=== PATIENT | male | born 1980 | race Caucasian/White ===

== ENCOUNTER 2023-05-07 13:43 | Outpatient (CLI) | payer OTHER ==
--- NOTE | 2023-05-07 14:37 | Sleep Patient Instructions ---
Sleep Center Visit Summary - Patient Visit Information Reason for Visit: Initial consult for evaluation of sleep disordered breathing and other sleep issues. - Patient Instructions Instructions Attached: Sleep Study, Sleep Study Home Monitor Additional Instructions: You will be completing a sleep study, either an in-lab polysomnography (PSG) or home sleep study (HST). You will follow-up in the sleep care office after the sleep study is completed to hear the results and talk about therapy, if needed. You will be called by our office staff to schedule this appointment, but you may contact us with any questions. - Clinic Information Contact: [facility] [address] [place] [id number] [email or web address] T: [phone]
--- NOTE | 2023-05-07 14:40 | SLEEP CARE CONSULTATION ---
Information from patient questionnaire entered by Navya Marks. I have reviewed and concur with the information entered by Navya Marks. This document represents the service I personally performed and the decisions made by me, Karlene Mccann ARNP. History of Present Illness Service Date and Time: 05/07/2023 1343 Reason for Visit: New patient Chief Complaint: reports: Snoring Date of Onset: years Usual bedtime: 2100 Time it takes to fall asleep: SECONDS Snores at night: Yes Observed to quit breathing while asleep: No Sleeps alone due to snoring: Yes Number of times waking at night: 3-4 Reasons for waking at night: reports: Snoring (frequently), Bathroom, Other (UNKNOWN). denies: Choking, Gasping for air Toss, Turn, or Twitch while sleeping: No Recalls having dreams: Yes Usually gets out of bed at: 0500; weekends 0700 Feels refreshed in the morning: Yes (50 percent of time) Morning headache: No Sleepy or fatigued during the day: Yes Ever fallen asleep while driving: No Takes day naps: No Dreams during day naps: Yes Prior sleep studies: No Additional HPI information: I had the pleasure of seeing DEE DEE VALDEZ today regarding the possibility of him having a sleep disorder. His current complaint is snoring. He say his is complaining that in the last couple year his snoring has become louder than ever. She has not noted pauses in breathing. He says he is getting up frequently at night, sometimes to urinate but mostly for unknown reasons. He says he is rested about half the time when he gets up in the morning. He does have some daytime fatigue for which he drinks a lot of caffeine drinks. 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 Patient is and lives in . Have you smoked in the past 12 months: No Cigarettes per day (20/pack): 2 Years of smokin Quit date: 2021 Smoking Pack Years: 2.0 Alcohol use: No Caffeine use: Yes Caffeine amount and frequency: ALOT DAILY Family History Family history of sleep disordered breathing: No Allergies and Home Medications Known drug allergies: No Drug allergies reviewed: Yes Home medication list reviewed: Yes (as listed) Allergy and home medication list: Home Medications Medication Instructions Recorded Confirmed Last Taken Type Cholecalciferol (Vitamin D3) See Rx Instructions .ROUTE .COMPLEX 05/07/23 05/07/23 Unknown History [Vitamin D3] Mecobalamin [B12 Active] See Rx Instructions .ROUTE .COMPLEX 05/07/23 05/07/23 Unknown History Multivitamin See Rx Instructions .ROUTE .COMPLEX 05/07/23 05/07/23 Unknown History Review of Systems Weight gain over past 5 years: fluctuates 20-30 pounds Cardiovascular: denies: high blood pressure Respiratory: denies: shortness of breath Gastrointestinal: denies: heartburn Neurological: denies: headaches Psychiatric: denies: anxiety, depression Ear/Nose/Throat: reports: wisdom teeth removed. denies: tonsillectomy Immunologic: denies: allergies to food or environment Physical Exam Vital signs obtained and entered by: NAVYA Alberto MA Blood Pressure: 132/84 Cuff size: wrist (left) Heart Rate: 92 O2 Saturation: 98 Height: 5 ft 11 in Weight: 239 lb Body Mass Index: 33.3 BMI Classification: Obese Neck circumference: 16.25 Mouth and throat: narrow oropharynx Soft palate: long Hard palate: normal Uvula: long Uvula visualization: 25% Mallampati Class III Tongue: enlarged in size with teeth allen on lateral edges Tonsils: small Neck: normal w/o lymphadenopathy or thyromegaly Heart: regular rate and rhythm Lungs: clear bilaterally Impression and Plan 1. Suspected Obstructive Sleep Apnea-Hypopnea Syndrome, as suggested by a history of loud and irregular snoring, frequent awakening during the night and unrefreshed sleep. Narrow oropharynx and obesity are common predisposing factors for obstructive sleep apnea-hypopnea syndrome. I recommend proceeding to polysomnography to confirm the diagnosis and to assess severity. If the patient has significant sleep disordered breathing, a manual CPAP titration study will also be performed to find the optimal treatment pressure. I informed the patient of what the sleep studies involve and after some discussion, obtained agreement to proceed. The pathophysiology of obstructive sleep apnea-hypopnea syndrome was discussed with the patient and health risks of cardiovascular and cerebro vascular disease if not treated. 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 Patient agreed to plan. * Schedule polysomnography. * Avoid long distance driving or driving when feeling sleepy. * Avoid alcohol, sedative and muscle relaxant around bedtime. * Attempt to lose weight. * Review instructions provided by trained office staff on how to prepare for the sleep study. * Return for follow-up after sleep study completed. Counseling Topics: Weight loss health impact Plan: PSG Visit Type: In Office Time Spent with Patient (minutes): 30 Provider Statement: I spent 100% of the Face to Face Visit with the patient with greater than 50% spent counseling the patient and coordination of care.
[2023-05-07 15:02] VITALS: BP 132/84; O2SAT 98
== END 2023-05-07 13:44 | disposition home or self-care (01) ==
LOC: SC 13:43
PROVIDERS: ATTEND Nurse Practitioner Family
DX: R06.83 Snoring (principal); G47.8 Other sleep disorders; R53.83 Other fatigue; E66.9 Obesity, unspecified; Z68.33 Body mass index [BMI] 33.0-33.9, adult; Z87.891 Personal history of nicotine dependence
CPT/HCPCS: 99203; 99212

== ENCOUNTER 2023-05-24 19:26 | Outpatient (CLI) | payer OTHER | END 2023-05-24 19:27 | disposition home or self-care (01) | LOC: SC 19:26 | PROVIDERS: ATTEND Nurse Practitioner Family | DX: G47.33 Obstructive sleep apnea (adult) (pediatric) (principal); E66.9 Obesity, unspecified; Z68.33 Body mass index [BMI] 33.0-33.9, adult | CPT/HCPCS: 95810 ==

== ENCOUNTER 2023-05-29 13:33 | Outpatient (CLI) | payer OTHER ==
--- NOTE | 2023-05-29 14:21 | Sleep Patient Instructions ---
Sleep Center Visit Summary - Patient Visit Information Reason for Visit: Sleep study follow-up - Patient Instructions Instructions Attached: CPAP Additional Instructions: You are being started on CPAP therapy with pressure setting at 4-15 cmH2O. You w ill need to call the sleep care office to set up your follow up once you have your APAP machine and we will schedule a visit to check compliance and response to therapy at that time. You may call the office with any concerns about pressure feeling too low or too much for adjustment, if needed. You should contact DME supplier for any questions or concerns about mask or equipment. Please call office to schedule a follow up appointment in the sleep care office one month after obtaining new device. - Clinic Information Contact: [facility] [address] [place] [address] [email or web address] T: [phone]
--- NOTE | 2023-05-29 14:24 | SLEEP CARE CONSULTATION ---
Information from patient questionnaire entered by Navya Marks. I have reviewed and concur with the information entered by Navya Marks. This document represents the service I personally performed and the decisions made by me, Karlene Mccann ARNP. History of Present Illness Service Date and Time: 05/29/2023 1333 Initial [place] Sleepiness Scale score: 3 (05/07/23) Current [place] Sleepiness Scale score: 5 (05/29/23) Additional HPI information: DEE DEE JOSÉ MIGUEL returns for follow up and results of the recently performed polysomnography. The sleep study showed mild obstructive sleep apnea with an average AHI of 9.7 and radha oxygen saturation of 77%. I explained the pathophysiology behind obstructive sleep apnea. We then spent quite a bit of time discussing different treatment options. For mild obstructive sleep apnea, surgery and oral appliance are alternatives to nasal CPAP therapy but in moderate or severe cases, nasal CPAP is the most effective and reliable treatment. Because apnea is primarily in supine position, then positional management therapy could be effective. Methods discussed such as positioning with pillows, using a T-shirt with tennis balls in the back or commercial products that have a pillow format on back to prevent supine sleep. I reviewed the impact of weight changes on sleep apnea and strongly recommended losing weight. After some discussion, the patient opted to go with the nasal CPAP therapy. Nasal autoCPAP set at 4-15 cmH20 will be ordered with rationale explained. A manual titration study will be ordered if unable to find optimal pressure with office adjustments. I explained how CPAP machine works and what to expect when using the machine. Using CPAP every night in order to get used to it was emphasized. Patient advised to put CPAP mask on before getting into bed so as not to fall asleep without CPAP. To assist acclimation to CPAP use, it could also be used for a short time during day while reading or watching TV. The patient was instructed to call the CPAP supplier to discuss any mechanical problem that may occur. If the mask given is uncomfortable or is difficult to keep on through the night even with adjustment, contact the CPAP supplier as many will replace with another mask style if notified before 30 days. If snoring or perceives is not getting enough air or too much air from the machine, notify this office. Patient does not drink alcohol. Patient was cautioned about risks of drowsy driving until sleepiness symptoms resolve. Patient denies drowsy driving. Sleep Study - Results Type of Sleep Study: Polysomnography (COMPLETED 05/24/23) Prior sleep studies: No Polysomnography/Home Sleep Study results: IMPRESSION: The quality of the study is good. The patient had normal sleep efficiency. The sleep architecture was relatively normal as well considering the first night effect. Respiratory monitoring showed mild obstructive sleep apnea-hypopnea (AHI = 9.7) associated with frequent arousals, oxyhemoglobin desaturation and moderate hypoxia (radha oxygen saturation of 77%). Baseline oxygen saturation was normal. The respiratory events occurred almost exclusively during supine sleep (supine AHI = 17.1; non-supine = 0.84). Snore was light to loud in intensity. There was no significant periodic leg movement of sleep. Cardiac rhythm was normal sinus rhythm without significant arrhythmia. No abnormal behavior (parasomnia) observed during the night. Allergies and Home Medications Known drug allergies: No Drug allergies reviewed: Yes Home medication list reviewed: Yes (no changes) Allergy and home medication list: Allergies No Known Drug Allergies Allergy (Verified 05/28/23 15:35) Review of Systems Review of systems same as previous: Yes (NO CHANGE) Physical Exam Vital signs obtained and entered by: NAVYA Alberto MA Blood Pressure: 149/98 (RIGHT ARM) Cuff size: regular Heart Rate: 96 O2 Saturation: 98 Height: 5 ft 11 in Weight: 232 lb 6.4 oz Body Mass Index: 32.4 BMI Classification: Obese Impression and Plan 1. Obstructive Sleep Apnea-Hypopnea Syndrome, mild, with lowest oxygen saturation of 77%. Obviously this is the cause of the patients symptoms of unrefreshed sleep, and excessive daytime sleepiness. As mentioned above, the patient will be started on nasal autoCPAP therapy with pressure set at 4-15 cmH2 O. A manual titration study will be completed if unable to find optimal treatment pressure with office adjustments. Compliance guidelines also reviewed. A copy of compliance guidelines will be given for reference at check out. Because the apnea is more severe supine, I instructed to avoid sleeping supine using pillow positioning until able to start CPAP use. 2. Hypoxemia, moderate, with a radha oxygen saturation of 77% and 6.8 minutes spent under 90%. The baseline oxygen saturation was normal with an average oxygen saturation of 94%. 3. Obesity, unspecified. Currently patients BMI is 32.4. Obesity increases the risk of apnea, CPAP pressure requirements and overall health risks especially cardiovascular and diabetes. Thus patient is advised to lose weight. * Nasal auto CPAP therapy, pressure at 4-15 cm H2O. * Attempt to lose weight. * Avoid alcohol consumption near bedtime. * Avoid supine sleep until using CPAP. * The patient is again cautioned about driving until sleepiness completely resolves. * Return one month after CPAP obtained. I will assess response to therapy and compliance at that time. Counseling Topics: Sleeping position, Weight loss health impact Prescriptions: Auto CPAP Follow up with Sleep Care in: other (compliance followup) Visit Type: In Office Time Spent with Patient (minutes): 20 Provider Statement: I spent 100% of the Face to Face Visit with the patient with greater than 50% spent counseling the patient and coordination of care.
[2023-05-29 14:29] VITALS: BP 149/98; O2SAT 98
== END 2023-05-29 13:34 | disposition home or self-care (01) ==
LOC: SC 13:33
PROVIDERS: ATTEND Nurse Practitioner Family
DX: G47.33 Obstructive sleep apnea (adult) (pediatric) (principal); R09.02 Hypoxemia; E66.9 Obesity, unspecified; Z68.32 Body mass index [BMI] 32.0-32.9, adult
CPT/HCPCS: 99212; 99213

== ENCOUNTER 2023-07-23 12:40 | Outpatient (CLI) | payer OTHER ==
--- NOTE | 2023-07-23 13:14 | Sleep Patient Instructions ---
Sleep Center Visit Summary - Patient Visit Information Reason for Visit: First compliance follow-up - Patient Instructions Additional Instructions: You were here for follow up of CPAP therapy. You will be continued on CPAP therapy with pressure at 9-11 cmH2O. Please let us know if the pressure change is uncomfortable and we can make further adjustments of the pressure. You should follow up with sleep care in 1-2 months. You may contact us sooner for any questions or concerns. - Clinic Information Contact: [facility] [address] [place] [address] [email or web address] T: [phone]
--- NOTE | 2023-07-23 13:21 | SLEEP CARE CONSULTATION ---
Information from patient questionnaire entered by Navya Marks. I have reviewed and concur with the information entered by Navya Marks. This document represents the service I personally performed and the decisions made by , Karlene Mccann ARNP. History of Present Illness Service Date and Time: 07/23/2023 1240 Previous diagnosis: Mild, Obstructive Sleep Apnea-Hypopnea Syndrome AHI: 9.7 (05/24/23) Reason for follow up: first compliance Equipment type: CPAP (RESMED Airsense 11 S/U ) Equipment obtained from: Other ([facility]; getting supplies) Mask style: Nasal (Over the nose) Backup mask available: No (will keep old mask when replaced) Prior sleep studies: No Type of Sleep Study: Polysomnography (COMPLETED 05/24/23) HPI additional information: DEE DEE VALDEZ was diagnosed to have mild, AHI 9.7, obstructive sleep apnea- hypopnea syndrome and returned today for CPAP therapy first compliance follow- up. Sleep Study - Results Type of Sleep Study: Polysomnography (COMPLETED 05/24/23) Prior sleep studies: No CPAP Compliance Data - Data Reviewed with Patient Average duration of nightly device use: 4 HRS 40 MINS Compliance rate %: 53 (06/21/23-07/20/23; / days used ) Current pressure setting (cmH2O): 4-15 (median 7.3, avg 10.3, max 11.3) Average residual AHI: 0.4 Central apnea: 0.1 Obstructive apnea: 0.1 Hypopnea: 0.1 Average large leak: 0.1 L/min Subjective Missed days of use due to: reports: other (fell asleep without mask on; occasionally will take off during night) Patient concerns: reports: mask discomfort, condensation in mask/hose, other (not enough air at first). denies: aerophagia, air blowing in eyes, mask leak noise, nasal congestion, dry mouth, nose, throat, epistaxis Observed to snore while using device: No Current pressure setting perceived as: too low (at first of night) On therapy, patient: reports: sleeping better, awakening more refreshed, being more awake and alert during the day, more rested overall. denies: drowsiness while driving Initial [place] Sleepiness Scale score: 3 (05/07/23) Current [place] Sleepiness Scale score: 4 (07/23/23) Allergies and Home Medications Known drug allergies: No Drug allergies reviewed: Yes Home medication list reviewed: Yes (no changes) Allergy and home medication list: Allergies No Known Drug Allergies Allergy (Verified 07/21/23 10:38) Review of Systems Review of systems same as previous: Yes (NO CHANGE) Physical Exam Vital signs obtained and entered by: NAVYA Alberto MA Blood Pressure: 137/100 (RIGHT ARM) Cuff size: long Heart Rate: 77 O2 Saturation: 97 Height: 5 ft 11 in Weight: 236 lb 6.4 oz Body Mass Index: 32.9 BMI Classification: Obese Impression and Plan 1. Obstructive Sleep Apnea-Hypopnea Syndrome, mild, with fair treatment compliance and good apnea control. On CPAP therapy, the patient has better sleep quality and is more rested overall. He feels that the pressure is too low until it has been about 20 minutes. He called [employer] and they turned off his ramp. This did not resolve the issue. I will set the ramp staring pressure at 7 cmH2O and the patients pressure will be changed to autoCPAP 9-11 cmH20 to reflect pressure being used with significant improvement of sleep apnea. Patient advised to contact me if pressure change is uncomfortable so that it can be adjusted. Goals for apnea control discussed. He has been getting some water in his mask and nose that really bothers him. I looked at his humidity level and reduced it to 3 from 4. His heated hose is at 80 degrees. Patient's apnea severity and rationale for treatment to reduce apnea, improve sleep quality and reduce cardiovascular and cerebrovascular events was reviewed. 2. Obesity, unspecified. Currently patients BMI is 32.9. Obesity increases the risk of apnea, CPAP pressure requirements and overall health risks especially cardiovascular and diabetes. Thus patient is advised to lose weight. * Change ramp starting pressure to 7 cmH2O for 10 minutes * Change auto CPAP pressure to 9-11 cmH2O * Notify me if snoring with mask or feeling that the pressure is too much or too little * Attempt to lose weight * Call this office if any problems using CPAP * Return for follow up in 1-2 months, or sooner if concerns arise Adjust device pressure to (cmH2O): 9-11 Counseling Topics: Spare mask, Weight loss health impact Follow up with Sleep Care in: 1-2 months Visit Type: In Office Time Spent with Patient (minutes): 28 Provider Statement: I spent 100% of the Face to Face Visit with the patient with greater than 50% spent counseling the patient and coordination of care.
[2023-07-23 13:23] VITALS: BP 137/100; O2SAT 97
== END 2023-07-23 12:41 | disposition home or self-care (01) ==
LOC: SC 12:40
PROVIDERS: ATTEND Nurse Practitioner Family
DX: G47.33 Obstructive sleep apnea (adult) (pediatric) (principal)
CPT/HCPCS: 99212; 99213